=== PATIENT | male | born 1980 | race Caucasian/White ===

== ENCOUNTER → 2023-05-24 | Outpatient (CLI) | payer OTHER, SELFPAY ==
--- NOTE | 2023-05-24 10:43 | US_ITS ---
STUDY: ULTRASOUND - US Unlisted US Procedure 05/25/2023 8:23 PM REASON FOR EXAM: Male, 43 years old. Lipoma of back -- Right upper backLipoma of back -- Right upper back TECHNIQUE: A superficial ultrasound was performed with real-time and static nichols-scale imaging. COMPARISON: None. FINDINGS: There is no fluid collection. There is no abscess. There is an isoechoic lesion in the area of concern. This measures 84 x 101 x 18 mm. It is in the right upper back. US/Other Unlisted US Procedure IMPRESSION: In the area of concern there is likely a lipoma. CT with IV can further evaluate. Electronically Signed: Faraz Shelby MD at 20:25 EDT ,
== END | disposition home or self-care (01) ==
LOC: US 10:42
PROVIDERS: PCP Physician Assistant; Referring Provider Surgery; Visit Provider Surgery
DX: D17.1 Benign lipomatous neoplasm of skin and subcutaneous tissue of trunk (principal)
CPT/HCPCS: 76999

== ENCOUNTER 2023-06-02 08:50 | Day surgery (SDC) | payer OTHER, SELFPAY ==
[2023-06-02] VITALS (10 sets, daily range): BP systolic 97–145; BP diastolic 67–100; PULSE 72–89; RESP 14–18; TEMP 36.6–37.1; O2SAT 2–96; BMI 33.5
[2023-06-02] MEDS: Lactated Ringers 1,000 ML 15 ML IV (09:17)
--- NOTE | 2023-06-02 10:25 | PCM.HP.BLA ---
History and Physical Date of Admission: 06/02/23 Date of Service: 05/14/23 MR#: [id number] Acct: [id number] Name: JAKUB SUTHERLAND I Rep #: [id number] : 1980 Provider: Dr. Jos Young MD Age/Sex: 42/M Location: [facility] [address] Status: Signed Intake Vital Signs 05/13/2409:06 Height 5 ft 7 in Weight: 216 lb 4 oz BMI 33.8 BP 153/112 H Blood Pressure Location Rt brachial Position Sitting Respiration 18 Pulse 86 Pulse Source Monitor Temp 98.5 F Temp Source Temporal Pulse Oximetry (%) 96 Oxygen Delivery Method room air Intake Visit Reasons: LIPOMAS ON BACK/ABDOMEN Chief Complaint: lipoma on back/ abdomen Occupational Health And Safety Adviser Required: No Is patient in pain?: No Allergies No Known Allergies Allergy (Unverified 05/14/23 10:07) Medications NK 05/14/23 [History Confirmed 05/14/23] PFSH Surgical History (Updated 05/14/23 @ 10:06 by Chela Wheeler LPN) History of nick hole surgery Social History (Updated 05/14/23 @ 10:06 by Chela Wheeler LPN) Smoking Status: Never smoker alcohol intake: never substance use type: does not use HPI HPI HPI: Patient is a 42-year-old male who presents for evaluation of multiple lipomas. He is referred from AKANK[facility] Boo. He shares that he has noticed these areas somewhere between 6 to 8 years ago. He has noted some growth but suggest that has not been anything extreme. He has no discomfort from his largest lipoma unless he is lying back against a chair (this is on his back) and shares that his most symptomatic lipomas actually the smallest 1 is in his lower left abdomen. When queried as to why he is now seeking evaluation he shares that he simply promised his that he would have these areas checked out further. He has no history of prior growth excision. The lesions in question have never been formally imaged. Patient has no current diagnoses. Remotely, patient required a craniotomy (23 years ago in relation to a TBI) and has not required any further surgery. 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 ROS General General: No weight change, appetite, fatigue, colon cancer, breast cancer or weakness HEENT HEENT: No difficulty swallowing, eye injury, eye surgery, swollen glands or hoarseness Endo Endocrine: No thyroid disease, diabetes mellitus, thyroid cancer, Hair loss, heat intolerance or cold intolerance Skin Skin: No rash or changing moles Musc Musculoskeletal: No back problems, arthritis, rheumatoid arthritis, gout or joint pain Cardio Cardiovascular: No murmur, pacemaker, heart disease, atrial fibrillation, high blood pressure, heart attack, heart stent, palpitations, shortness of breat with exertion or chest pain Psych Psychiatric: No depression, anxiety or hearing voices Resp Respiratory: No shortness of breath, No sleep apnea, No cough, No COPD, No asthma, No emphysema and No wheezing Gastro Gastrointestinal: No abdominal pain, No nausea or vomiting, No diarrhea, No constipation, No blood in stool, No acid reflux, No hemorrhoids, No ulcers, No gallbladder problem and No black,tarry stools Bob Hematologic: No blood thinners, No blood disorders, No bleeding, No anemia and No blood clots Neuro Neurologic: No weakness Exam Const General: cooperative and comfortable Nutritional Appearance: obese Orientation: alert, awake and oriented x3 Skin Other: Right upper back lipomatous mass measures approximately 10 cm in diameter is nontender. Left bicep lipomatous mass measures approximately 3 cm in diameter and is surrounding nontender. Lastly there is a subtle lipomatous mass of the left lower quadrant abdominal wall that measures approximately 2 cm in diameter. Once again, this is nontender to palpation. Significantly, none of these areas are fluctuant but rather simply soft and consistent with the fatty core of a lipomatous mass. Assessment and Plan Assessment and Plan (1) Lipoma of back: Status: Chronic Comment: Patient is a 42-year-old, otherwise healthy, male who presents with a long history of slowly?enlarging lipoma of his right upper back. It is occasionally symptomatic with discomfort when leaning back upon it. Due to its growth and occasional discomfort he wishes to have it removed. On exam this appears to be approximately 10 cm in diameter and of uncertain depth. For surgical planning purposes I have requested a soft tissue ultrasound, but will otherwise plan to proceed to the OR for excision. Informed patient that I would recommend formal operative intervention for this lesion on the account of its size and potential significant depth down to the muscle. While there, we will plan to address his remaining lipomas that are significantly smaller. Additionally, I have briefed Mr. Sutherland on his significant risk for a postoperative seroma and shared that this may require an additional drainage procedure should it develop. To mitigate this risk have advised him to plan to keep off work for at least 2 weeks postoperatively. Plan: ? Ultrasound of right upper back lipomatous mass ? Excision of right upper back lipoma (2) Abdominal lipoma: Status: Chronic Comment: Patient with small superficial lipoma but he states this is the most symptomatic of the lesions that he has. Given that we plan to proceed to the operating room for the right upper back lipoma this lesion should be addressed concurrently but would require repositioning to access. Plan: Operative excision with above back lipoma (3) Lipoma of arm: Status: Chronic Comment: Patient with nontender lipomatous mass superficially located over the left bicep. Given plans to excise the above lipomas I have suggested we simply include this with those 2 areas. It is conceivable that following the right upper back excision we could access both the left abdominal and left upper extremity lipomas with 1 additional repositioning. Plan: Operative excision Orders: Orders Other BP Soft Tissue Today D17.1 - Benign lipomatous neoplasm of skin and subcutaneous tissue of trunk I have examined the patient the following changes are noted: Patient states that he had some spontaneous drainage of an area approximately 4 cm inferior from his left back lipoma. His shares that she thought this was perhaps a pimple that had drained. It has not drained in some time at this point. In reviewing patient's lipomas targeted for removal, he shares that there are actually 2 lipomas at the site of his biceps lipoma on the left as well as 2 lipomas adjacent 1 another in the left lower quadrant of his abdomen. The lipomas on the bicep look like they would be approachable through a single incision. However, the lipomas of the left lower quadrant of the abdomen look like they will require 2 incisions. Lastly, an additional lipoma was identified on patient's left flank which should be readily accessible in patient's positioning. Thus we will plan to excise a total of 6 lipomas during today's operation via 5 incisions. I did reiterate the concerns around a postoperative seroma and encouraged patient to limit activity from his right upper extremity immediately postoperatively. Will now proceed to the operating room for lipoma excision as previously planned.
--- NOTE | 2023-06-02 10:45 | LIP_PTH ---
PATIENT: JAKUB SUTHERLAND I LOC: [facility] [place] U#:[id number] AGE/SX: 43/M ROOM: RE06/02/[address]: Dr. Jos Young MD : 1980 BED: DIS: 06/02/2023 SPEC #: [id number] RECD: 06/02/23 14:20 STATUS: CHELLY CHAVO #: [id number] FERNANDA: 06/02/23 10:[address]: Jos Young DEPT: SURGICAL PATHOLOGY RECD BY: Elvia Encarnacion ENTERED: 06/03/23 12:12 SP TYPE: LIPOMA OTHR DR: AKANKSHA Mehta Tissues: A - Soft tissues, NOS B - Soft tissues, NOS C - Soft tissues of abdomen D - Soft tissues of abdomen E - Soft tissues, NOS Procedures: Surgery Specimen Level IV HEADER OPERATION: Excision, Lipoma x6, right upper back, left bicep x2 PRE-OP DIAGNOSIS: Multiple lipomas TISSUE SUBMITTED: A- Right upper back lipoma, B-Left flank lipoma, C- Left lower quadrant abdominal wall lipoma inferior, D- Left lower quadrant abdominal wall lipoma superior, E- Left biceps lipoma x2 MICROSCOPIC DIAGNOSIS A. Right upper back lipoma, excision: Fibrolipoma. B. Left flank lipoma, excision: Angiolipoma. C. Left lower quadrant abdominal lipoma, inferior, excision: Mature adipose tissue, consistent with lipoma. D. Left lower quadrant abdominal wall lipoma, superior, excision: Mature adipose tissue, consistent with lipoma. E. Left bicep lipoma x2, excision: Mature adipose tissue consistent with lipoma x2. JUAN/ 06/04/23 MICROSCOPIC DESCRIPTION Slides are reviewed. GROSS DESCRIPTION A. Received in fixative is one container labeled with the patient's name and designated Right upper back lipoma. The specimen consists of a irregular lobular piece of adipose tissue measuring 9.0 x 8.0 x 3.5cm. Sections reveal yellow adipose cut surfaces with area of hemorrhage necrosis or cystic degeneration. Sock Knitting Machine Operator sections are submitted in four cassettes. B. Received in fixative is one container labeled with the patient's name and designated Left flank lipoma. The specimen consists of a piece of adipose tissue measuring 2.5 x 2.0 x 1.5cm. A few detached fragments of adipose tissue are also noted. Sections reveal yellow adipose cut surfaces without area of hemorrhage necrosis or cystic degeneration. The entire specimen is submitted in three cassettes. C. Received in fixative is one container labeled with the patient's name and designated Left lower quadrant abdominal wall lipoma inferior . The specimen consists of a piece of adipose tissue measuring 3.5 x 2.5 x 1.7cm. Sections reveal yellow adipose cut surfaces with out area of hemorrhage necrosis or cystic degeneration. Sock Knitting Machine Operator sections are submitted in three cassettes. D. Received in fixative is one container labeled with the patient's name and designated Left lower quadrant abdominal wall lipoma superior. The specimen consists of an irregular partly disrupted piece of yellow adipose tissue measuring 3.0 x 2.5 x 1.5cm. Sections reveal yellow adipose cut surfaces without area of hemorrhage necrosis or cystic degeneration. The entire specimen is submitted in three cassettes. E. Received in fixative is one container labeled with the patient's name and designated Left bicep lipoma x2. The specimen consists of two pieces of yellow adipose tissue measuring 2.5 x 2.0 x 0.8cm and 3.0 x 2.0 x 1.0cm. Sections reveal yellow adipose cut surfaces without area of hemorrhage necrosis or cystic degeneration. Sock Knitting Machine Operator sections are submitted in four cassettes as follow: 1&2- One piece, 3&4- Second piece. JUAN/ 06/03/23 TC:1 CPT: 61825 x 5
[2023-06-02] MEDS: Cefazolin 2 GM in 0.9% Normal Saline (100mL Bag) 100 ML IV (11:04)
[2023-06-02] MEDS: Bupiv/Epi 0.25% 30 ML Vial (11:30)
--- NOTE | 2023-06-02 13:28 | PCM.OPRPT ---
Report of Operation Date of Procedure: 06/02/23 Pre-Operative Diagnosis: Right upper back, left flank, left lower abdominal quadrant, left bicep lipomas Post-Operative Diagnosis: Same Surgery/Procedure Performed:: Excision of lipomas x 6 (1 right upper back, 1 left flank, 2 left lower abdominal quadrant, 2 left bicep) Description of Surgical Findings:: ? Intramuscular right upper back lipoma ? Discrete smaller lipomas at remaining peripheral locations with adherence to underlying muscular fascia Surgeon: Jos Young security field supervisor: Bashir Back Type of Anesthesia: General/Supplemental Anesthesiologist: Kamran Garrett Specimen's removed: 1. Left upper back lipoma 2. Left flank lipoma 3. Left lower quadrant abdominal lipoma inferior 4. Left lower quadrant abdominal lipoma superior 5. Left biceps lipoma Drains: None Estimated Blood Loss (mL): 15 Description of Procedure: After confirming our written consents verbally, and confirming the location of patient's subcutaneous lesions through preprocedure marking via ultrasound localization, patient was positioned in a right lateral decubitus positioning on a beanbag taking care to pad any pressure points. Sedation was begun by anesthesia. The operative site was prepped and draped. A formal timeout followed to confirm patient and procedure. The preplanned line of incision in the right upper back was anesthetized with 0.5% bupivacaine with epinephrine. Then our incision (8 cm in length) was made sharply with a 15 blade scalpel. Dissection was carried down through the dermal layer to the subcutaneous tissue. The fatty tissue deep to this incision was then circumferentially dissected free of the surrounding subcutaneous tissue using a combination of blunt dissection and selective electrocautery. There were many dense adhesions between this semiencapsulated mass and the surrounding soft tissue that required use of electrocautery. Once I was able to get to the posterior aspect of this mass I used blunt dissection to open the interface between the posterior aspect of the lipoma and the muscular fascia. Through very dense adhesions, I then freed up the mass from the muscle in all other directions as well as the dermis anteriorly. The mass appeared to be extirpated completely and there were no lingering pockets of lipomatous tissue. The cavity was then irrigated and inspected for hemostasis. Selective electrocautery was applied and the cavity was packed with a gauze. I then proceeded to the left flank followed by the left lower abdominal quadrant where 4 cm and 3 cm (x 2), respectively, incisions were made. A combination of blunt and sharp dissection was used to free the anterior surfaces of the lipomas and then electrocautery was used to remove them from the underlying muscular fascial attachments. As the specimen was removed it was passed off the field for pathologic processing and each cavity was irrigated and hemostasis obtained. The right upper back, left flank, and 2 left lower quadrant surgical sites were closed in layers using 3-0 Vicryl followed by 4-0 Monocryl (2-0 Vicryl was used to pleat the inner aspect of the right upper back cavity to the underlying muscular fascia to try to minimize patient's risk for postoperative seroma). Each wound was then covered with half-inch Steri-Strips and dressed with OpSite bandages. Patient's beanbag and all positioning was taken down and he was returned to his [facility] in a supine position. Once there his left upper extremity was prepped and draped in a sterile fashion and an incision 3 cm in length was used to connect 2 separate lipomas overlying the left biceps. Once again, a combination of sharp and blunt dissection was used to free these lipomas from their surrounding skin attachments and the attachments to the fascia were disrupted with the use of electrocautery. This incision, like the previous incisions, was closed in layers using 3-0 Vicryl followed by 4-0 Monocryl. And again Steri-Strips and a operative dressing were applied. With the dressing intact patient's sedation was lightened and she was transferred to PACU for ongoing recovery. Complications None Admit VTE Documentation VTE Mechan Device Prophylaxis: SCD's
--- NOTE | 2023-06-02 13:34 | DCINST_ITS ---
Discharge Instructions Diet Discharge Diet: No restrictions Activity Discharge Activity: May Drive (No driving while using narcotic pain medication) May shower in (days): 2 Lifting Restrictions: Limit lifting with left upper extremity to no more than 15 pounds Dressing / Incision Call your doctor if your incision/area has: Continuous Slow Oozing, Sudden Increased Bleeding, Increased Pain/ Swelling, Increased Redness, Foul Smelling Discharge and Swelling at the incision site Call your doctor if you observe: Fever of 101 or Higher Suture Line Care: Avoid Pulling/Pushing Remove Dressing in: 2 days Cleanse incision/area with: Soap & Water Additional Dressing/Incision Instructions:: Please leave Steri-Strips intact until they fall off spontaneously or are taken off at your follow-up visit Follow Up Care Please Follow Up With: Jos Young MD When: 10-14 days postop- Test Results: Test results from this visit will be discussed in further detail at your follow- up appointment, if applicable. Discharge Plan Admission Primary Reason for Your Visit: Lipoma excision Attending Provider: Jos Young Primary Care Provider: Naga Alvarez Discharge Orders/Prescriptions Prescriptions: New oxycodone 5 mg tablet 5 mg PO Q6H PRN (Reason: pain) 3 Days Qty: 14 0RF Referrals / Follow Up: Naga Alvarez PA [Primary Care Provider] - Disposition Disposition (needs filled in before D/C Order can be placed): Home, Self Care
== END 2023-06-02 15:38 | disposition home or self-care (01) ==
LOC: SDC 08:51 → AC 08:52
PROVIDERS: PCP Physician Assistant; Referring Provider Physician Assistant; Visit Provider Surgery
PROC: (CPT 21931; principal; 2023-06-02 10:30)
DX: D17.1 Benign lipomatous neoplasm of skin and subcutaneous tissue of trunk (principal); D17.22 Benign lipomatous neoplasm of skin and subcutaneous tissue of left arm; E66.9 Obesity, unspecified; Z68.33 Body mass index [BMI] 33.0-33.9, adult
CPT/HCPCS: 21931; 24071; 00300; 88305; J7120; J2405